=== PATIENT | female | born 1980 | race American Indian/Alaskan Native ===

== ENCOUNTER 2024-04-17 06:43 | Day surgery (SDC) | payer OTHER ==
[2024-04-13 15:43] VITALS: BP 129/76
[~2024-04-17] VITALS: Ht 167.6 cm; Wt 102.7 kg
[~2024-04-17 06:43] MED LIST: BENADRYL ALLERG50 MG PO; CYMBALTA30 MG PO; ESTRADIOL NORETH PO; INDERAL XL80 MG PO; LACTATED RINGER'S 1,000 ML IV SCH; OMEPRAZOLE20 MG PO; RIZATRIPTAN10 MG PO; TRAZODONE HCL50 MG PO
[2024-04-17 06:58] VITALS: BP 129/69
[2024-04-17] MEDS ORDERED: FAMOTIDINE 20 MG/ 2 ML VIAL IV SCH (07:00)
[2024-04-17] MEDS ORDERED: IBLOOD GLUCOSE TEST STRIP 1 EA TEST VI PRN ×2 (07:00→10:30)
[2024-04-17] MEDS ORDERED: METOCLOPRAMIDE HCL 10 MG/2 ML SDV IV SCH (07:00)
[2024-04-17] MEDS ORDERED: LIDOCAINE HCL 1% 5 ML SDV INJ ONE (07:00)
[2024-04-17 08:44] VITALS: BP 118/68
[2024-04-17] MEDS ORDERED: LIDOCAINE HCL 2% 5 ML SDV ONE (09:10)
[2024-04-17] MEDS ORDERED: propofoL 200 MG/20 ML VIAL ONE ×2 (09:10→09:17)
[2024-04-17] MEDS ORDERED: fentaNYL citrate 100 MCG/2 ML VIAL ONE (09:10)
[2024-04-17] MEDS ORDERED: MIDAZOLAM HCL 2 MG/2 ML VIAL ONE (09:10)
[2024-04-17] MEDS ORDERED: ondansetron HCL 4 MG/2 ML VIAL ONE (09:57)
[2024-04-17] MEDS ORDERED: KETOROLAC TROMETHAMINE 30 MG/ML VIAL ONE (09:57)
[2024-04-17] MEDS ORDERED: LACTATED RINGER'S 1,000 ML IV SCH (10:30)
[2024-04-17] MEDS ORDERED: ondansetron HCL 4 MG/2 ML VIAL IV PRN ×2 (10:30)
[2024-04-17] MEDS ORDERED: MAGNESIUM HYDROXIDE/AL HYDROX 30 ML CUP PO PRN (10:30)
[2024-04-17] MEDS ORDERED: HYDROCODONE/ACETA 5/325 TAB PO PRN (10:30)
[2024-04-17] MEDS ORDERED: METOCLOPRAMIDE HCL 10 MG/2 ML SDV IV PRN (10:30)
[2024-04-17] MEDS ORDERED: fentaNYL citrate 50 MCG/ML SDV IV PRN (10:30)
[2024-04-17] MEDS ORDERED: MORPHINE SULFATE 10 MG/ML VIAL IV PRN (10:30)
[2024-04-17] MEDS ORDERED: PROCHLORPERAZINE EDISYLATE 10 MG/2 ML VIAL IV PRN (10:30)
[2024-04-17] MEDS ORDERED: IBUPROFEN 800 MG TAB PO PRN (10:30)
[2024-04-17] MEDS ORDERED: ondansetron HCL 4 MG TAB PO PRN (10:30)
[2024-04-17] MEDS ORDERED: NALOXONE HCL 0.4 MG SYR IV PRN ×2 (10:30)
[2024-04-17] MEDS ORDERED: FAMOTIDINE 20 MG TAB PO PRN (10:30)
[2024-04-17 10:48] VITALS: BP 117/79
--- NOTE | 2024-04-17 11:09 | NUR ---
04/17/24 1109 MELI DOUGHERTY 1013 PT ARRIVED TO PACU VIA STRECHER. PT LAYING IN RIGHT LATERAL, PT HAS NATURAL AIRWAY AND 6L OF O2 VIA FACE MASK. PT BREATHING EQUAL AND UNLABORED. PT AWAKE BUT DROWSEY. PT REPORTING NO PAIN OR NAUSEA AT THIS TIME. REPORT TAKEN FROM RUTH ANDERSON. 1025 PT HAS NO PAIN OR NAUSEA. PT SITTING UP AND SIPPING WATER.
--- NOTE | 2024-04-19 21:32 | OR ---
[facility] [address], [place] [address] Signed DATE OF OPERATION: 04/17/2024 SURGEON: Jennifer Trimble MD PREOPERATIVE DIAGNOSIS: Abnormal uterine bleeding, probable endometrial polyp. POSTOPERATIVE DIAGNOSIS: Abnormal uterine bleeding, probable endometrial polyp. PROCEDURE: Hysteroscopy with resection of endometrial polyps. ANESTHESIA: MAC. ESTIMATED BLOOD LOSS: 50 mL. DRAINS: None. INDICATIONS AND FINDINGS: The patient is a 44-year-old female who uses a tubal ligation for control. She has been on the pill to manage her periods, which have been heavy in the past. She is now having abnormal bleeding even with the pill. Ultrasound appeared to show a polyp. Endometrial biopsy was benign. She is now admitted for further evaluation. At the time of surgery, exam under anesthesia was normal. The uterus sounded to 8 cm. There was a polyp on the anterior fundus as well as the posterior fundus. DESCRIPTION OF PROCEDURE: The patient was prepped and draped in the dorsal lithotomy position. A weighted speculum was placed. The anterior lip of the cervix was visualized and grasped with a single-tooth tenaculum. The uterus was sounded to 8 cm. The endocervical canal was then dilated to a #8 dilator. The MyoSure device was placed and the cavity evaluated. MyoSure Lite was then introduced and the polyps on the anterior and posterior fundus were resected completely. The instruments were removed but there was some ongoing bleeding through the cervix. Sutures of 0 chromic were placed at 3 and 9 o'clock with improvement in her bleeding. Additional sutures were placed at 6 and 12 in the same manner and bleeding was then minimal. The patient tolerated the procedure well. All Electronically Signed By: JENNIFER TRIMBLE MD 04/19/24 2132 PATIENT NAME: EBONIE KEYES OPERATIVE REPORT DATE OF : 78 REPORT #: [id number] PHYSICIAN: JENNIFER TRIMBLE MD PCP: RYDER ALCANTARA PAC REPORT IS CONFIDENTIAL AND NOT TO BE RELEASED WITHOUT AUTHORIZATION [facility] [address] [place] [id number] Signed sponge and needle counts were correct. Jennifer Trimble MD PJJocelyne/MODL /[id number] Copies: ~ Electronically Signed By: JENNIFER TRIMBLE MD 04/19/24 2132 PATIENT NAME: EBONIE KEYES OPERATIVE REPORT DATE OF : 78 REPORT #: [id number] PHYSICIAN: JENNIFER TRIMBLE MD PCP: RYDER ALCANTARA PAC REPORT IS CONFIDENTIAL AND NOT TO BE RELEASED WITHOUT AUTHORIZATION
--- NOTE | 2024-04-24 19:46 | PATH ---
[facility] [address] [place], [place] [address] Signed SPECIMEN(S): A ENDOMETRIAL POLYP SPECIMEN SOURCE: A. ENDOMETRIAL POLYP CLINICAL HISTORY: Endometrial polyp, AUB FINAL PATHOLOGIC DIAGNOSIS: Endometrium, polyp: - Endometrial polyp. COMMENT: The tissue biopsy specimen contains endometrial tissue that has architectural features compatible with an endometrial polyp. Glandular and stromal patterns have been altered in a fashion that is characteristic of a polyp. Thick-walled vessels are present. There is no evidence of hyperplasia or carcinoma. TWK MICROSCOPIC EXAMINATION: Histologic sections of all submitted blocks are examined by light microscopy. These findings, together with the gross examination, support the pathologic diagnosis. GROSS DESCRIPTION: The specimen, labeled and designated "Marlys endometrial polyp," is received in formalin and consists of multiple fragments of ochoa to red-brown soft tissue (3.8 x 2.8 x 0.4 cm in aggregate). The specimen is submitted entirely in cassette (A1-A2). VB (under the direct supervision of a pathologist) The Gross Description was prepared using a voice recognition system. The report was reviewed for accuracy; however, sound-alike word errors, addition and/or deletions may occur. If there is any question about this report, please contact Client Services. ADDITIONAL NOTES: Immunohistochemical and/or in situ hybridization studies if performed in this case included appropriate positive controls that reacted as expected. This test was developed and its performance characteristics determined by [facility]. It has not been cleared or PATIENT NAME: DAVID KEYESRONNIE HAWK PATHOLOGY DATE OF : 78 REPORT #: [id number] PHYSICIAN: NAWAF CANTOR PCP: RYDER ALCANTARA PAC REPORT IS CONFIDENTIAL AND NOT TO BE RELEASED WITHOUT AUTHORIZATION [address] [place] [address] Signed approved by the U.S. Food and Drug Administration. The FDA has determined that such clearance or approval is not necessary. This test is used for clinical purposes. It should not be regarded as investigational or for research. [facility] is certified under the Clinical Laboratory Improvement Amendments of 1988 (CLIA) as qualified to perform high complexity clinical laboratory testing. PERFORMING LABORATORY: Technical component was performed by [facility], [address] [place] [id number] (CLIA# [id number]). Professional interpretation was performed by [facility] - [facility], [facility] [address] [address] (CLIA#:[id number]). Diagnostician: Markus Humphreys MD Pathologist Electronically Signed 04/24/2024 Copies: ~ PATIENT NAME: EBONIE KEYES PATHOLOGY DATE OF : 78 REPORT #: [id number] PHYSICIAN: NAWAF CANTOR PCP: RYDER ALCANTARA PAC REPORT IS CONFIDENTIAL AND NOT TO BE RELEASED WITHOUT AUTHORIZATION
== END 2024-04-17 10:58 | disposition home or self-care (01) ==
LOC: OPS 06:43 → DS 06:43 → OPS 07:30 → DS 08:45 → OPS 08:45 → DS 09:30 → OPS 10:58
PROVIDERS: ATTEND Obstetrics & Gynecology
PROC: 0UB98ZZ Excision of Uterus, Via Natural or Artificial Opening Endoscopic (ICD-10-PCS; principal; 2024-04-17 08:45)
DX: N84.0 Polyp of corpus uteri (principal); E78.5 Hyperlipidemia, unspecified; K21.9 Gastro-esophageal reflux disease without esophagitis; F43.10 Post-traumatic stress disorder, unspecified; Z87.891 Personal history of nicotine dependence; Z79.899 Other long term (current) drug therapy; Z98.51 Tubal ligation status
CPT/HCPCS: 00952; 88305; J1885; J2001; J2250; J2405; J2704; J2765; J3010; J7121